=== PATIENT | female | born 1985 | race American Indian/Alaskan Native ===

== ENCOUNTER 2018-02-20 03:26 | Emergency (ER) | payer MEDICAID ==
[2018-02-20 04:56] LABS: Basophils # (Auto) 0.1 K/mm3 (0.0-0.1); Basophils % (Auto) 1.1 % (0.0-1.8); Eosinophils # (Auto) 0.1 K/mm3 (0.0-0.4); Eosinophils % (Auto) 2.4 % (0.0-4.3); Hematocrit 40.3 % (30.3-42.9); Hemoglobin 13.3 gm/dl (10.1-14.3); Lymphocytes # (Auto) 1.5 K/mm3 (1.2-5.4); Lymphocytes % (Auto) 30.2 % (13.4-35.0); Mean Corpuscular HGB Conc 33 % (30-34); Mean Corpuscular Hemoglobin 27 pg (28-32); Mean Corpuscular Volume 81 fl (79-97); Monocytes # (Auto) 0.4 K/mm3 (0.0-0.8); Monocytes % (Auto) 8.3 % (0.0-7.3); Platelet Count 239 K/mm3 (140-440); Red Blood Count 4.99 M/mm3 (3.65-5.03); Red Cell Distribution Width 13.7 % (13.2-15.2)
[2018-02-20] MEDS ORDERED: NORVASC PO ONE (06:33)
--- NOTE | 2018-02-20 06:38 | Emergency Department Report ---
HPI - General Chief Complaint: High BP Time Seen by Provider: 02/20/18 06:12 - HPI HPI: 33-year-old -[place] female presents to the emergency department with complaint of elevated blood pressure and a headache. The patient has a history of some intermittent hypertension but has not been on any medications for it over the past few years. She was being seen by her [employer]MENT[employer]AR [employer]OP[employer] at [facility] and was found to have a blood pressure of about 150/110 and was told that she needs to get back on blood pressure medications. She was referred to a primary care physician at [place] and was told by that office to come in yesterday for an evaluation. However just as they got there the physician apparently had left and they were encouraged to come to the emergency department. The headache is frontal. It was 8 out of 10 in intensity when she arrived but is now down to 2 out of 10 without any intervention. She is a former smoker but denies any illicit drug use. She admits to sometimes having a lot of salt in her diet. She denies any vision change, slurred speech, chest pain or shortness of breath , or any neurological deficits. ED Past Medical Hx - Past Medical History Previous Medical History?: Yes Hx Hypertension: Yes (09/2012) Hx Heart Attack/AMI: No Hx Congestive Heart Failure: No Hx Diabetes: Yes (gestational) Hx Deep Vein Thrombosis: No Hx Renal Disease: No Hx Sickle Cell Disease: No Hx Seizures: No Hx Asthma: No Hx COPD: No Hx HIV: No - Surgical History Past Surgical History?: No - Social History Smoking Status: Never Smoker Substance Use Type: None - Medications Home Medications: Home Medications Medication Instructions Recorded Confirmed Last Taken Type Multivit-Minerals/Folic Acid [[facility] 1 tab PO DAILY 05/29/15 06/03/15 06/03/15 09: 00 History Women's Daily Gummies] Amlodipine Besylate [Norvasc] 5 mg PO QDAY #30 tablet 02/20/18 Unknown Rx ED Review of Systems ROS: Stated complaint: HTN Other details as noted in HPI Comment: All other systems reviewed and negative Constitutional: denies: chills, fever Eyes: denies: eye pain, eye discharge, vision change ENT: denies: ear pain, throat pain Respiratory: denies: cough, shortness of breath, wheezing Cardiovascular: denies: chest pain, palpitations Gastrointestinal: denies: abdominal pain, nausea, diarrhea Genitourinary: denies: urgency, dysuria, discharge Musculoskeletal: denies: back pain, joint swelling, arthralgia Skin: denies: rash, lesions Neurological: headache. denies: numbness Physical Exam - Physical Exam Vital Signs: Vital Signs 02/20/18 03:30 Temperature 98.5 F Pulse Rate 87 Respiratory 18 Rate Blood Pressure 152/107 O2 Sat by Pulse 100 Oximetry Physical Exam: GENERAL: The patient is well-developed well-nourished. HENT: Normocephalic. Atraumatic. Patient has moist mucous membranes. EYES: Extraocular motions are intact. Pupils equal reactive to light bilaterally. NECK: Supple. Trachea is midline. CHEST/LUNGS: Clear to auscultation. There is no respiratory distress noted. HEART/CARDIOVASCULAR: Regular. There is no tachycardia. There is no murmur. ABDOMEN: Abdomen is soft, nontender. Patient has normal bowel sounds. There is no abdominal distention. SKIN: Skin is warm and dry. NEURO: The patient is awake, alert, and oriented. The patient is cooperative. The patient has no focal neurologic deficits. The patient has normal speech. Cranial nerves II through XII grossly intact. MUSCULOSKELETAL: There is no tenderness or deformity. There is no limitation range of motion. There is no evidence of acute injury. ED Course Vital Signs 02/20/18 03:30 Temperature 98.5 F Pulse Rate 87 Respiratory 18 Rate Blood Pressure 152/107 O2 Sat by Pulse 100 Oximetry ED Medical Decision Making - Lab Data Result diagrams: 02/20/18 04:04 02/20/18 04:04 - EKG Data -: EKG Interpreted by Me EKG shows normal: sinus rhythm, axis, intervals, QRS complexes, ST-T waves Rate: normal - EKG Data When compared to previous EKG there are: previous EKG unavailable Interpretation: normal EKG - Medical Decision Making Patient presents with some hypertension and a mild headache. There are no focal , motor or sensory deficits in her cranial nerves are intact. Because of this, and since the headache is greatly improved, and since the blood pressure is not accelerated or a hypertensive urgency, did not feel that the patient required a CT of the head for evaluation of the headache. She is in agreement with this. She was given a dose of Norvasc at a medium dose upon reevaluation her blood pressures come down to a more reasonable level. We discussed dietary and lifestyle changes to make to assist with her blood pressure. She will be started on Norvasc 5 mg and has been instructed to keep a blood pressure log. She will follow up with her primary care physician and will return to the ER with any worsening of her symptoms or any acute distress. - Differential Diagnosis tension headache, migraine, cluster headache Critical Care Time: No Critical care attestation.: If time is entered above; I have spent that time in minutes in the direct care of this critically ill patient, excluding procedure time. ED Disposition Clinical Impression: Hypertension Qualifiers: Hypertension type: essential hypertension Qualified Code(s): I10 - Essential ( primary) hypertension Headache Qualifiers: Headache type: unspecified Headache chronicity pattern: unspecified pattern Intractability: not intractable Qualified Code(s): R51 - Headache Disposition: DC-01 TO HOME OR SELFCARE Is pt being admited?: No Condition: Stable Instructions: Acute Headache (ED), Hypertension (ED) Additional Instructions: Please follow up with a primary care physician in the next few days. Return to the emergency Department with any worsening of your symptoms or any acute distress. I have started you on a blood pressure medication called Norvasc/amlodipine that is to be taken once daily, usually in the morning. Keep a blood pressure log. Try and stay away from foods that are high in salt and caffeinated products. Prescriptions: Amlodipine Besylate [Norvasc] 5 mg PO QDAY #30 tablet Referrals: PRIMARY MD EUFEMIA [Primary Care Provider] - 2-3 Days Time of Disposition: 07:50
[2018-02-20 07:36] LABS: BUN/Creatinine Ratio 13; Blood Urea Nitrogen 10 mg/dL (7-17); Calcium 9.9 mg/dL (8.4-10.2); Hemolysis Index 3
[2018-02-20 08:27] VITALS: BP 139/86
== END 2018-02-20 08:27 | disposition home or self-care (01) ==
LOC: ED 03:26
DX: I10 Essential (primary) hypertension (principal); R51 Headache
CPT/HCPCS: 36415; 80048; 85025; 93005; 93010; 99283

== ENCOUNTER 2020-07-19 19:20 | Emergency (ER) | payer MEDICAID ==
--- NOTE | 2020-07-19 20:47 | Event Note ---
ED Screening Note ED Screening Note: states she has had elevated BP for two days states she is supposed to be on amlodipine 10 mg, she is non compliant +palpitations yesterday +headache states she feels nervous no CP no SOB no cough no fever no n/v/d no vision changes no numbness no unilateral weakness PMHx HTN no allergies to meds implanted control has not had ETOH in a month no drug use non smoker +occasional tea use +soda no energy drinks This initial assessment/diagnostic orders/clinical plan/treatment(s) is/are subject to change based on patients health status, clinical progression and re- assessment by fellow clinical providers in the ED. Further treatment and workup at subsequent clinical providers discretion. Patient/guardian urged not to elope from the ED as their condition may be serious if not clinically assessed and managed. Initial orders include: labs, EKG, UA, UDS
[2020-07-19] MEDS ORDERED: SODIUM CHLORIDE 0.9% 1000 ML 1,000 ML ONE (21:00)
--- NOTE | 2020-07-19 21:05 | Emergency Department Report ---
ED Palpitations HPI - General Chief Complaint: Arrhythmia/Palpitations Stated Complaint: RAPID HEARTBEAT/HIGH BP Time Seen by Provider: 07/19/20 20:50 Source: patient Mode of arrival: Ambulatory Limitations: No Limitations - History of Present Illness Initial Comments: Patient is a 35-year-old female that presents emergency room with complaints of palpitations and elevated blood pressure and headache. Patient states she is also feeling anxious. Patient states that her symptoms started yesterday. Patient states she supposed to be taking amlodipine but she has not taken it for many months. Patient states she was try to take the natural route. Patient states her headache is a dull pressure and is global. Patient denies blurry vision. Patient states that her headache is better with rest and worse with exertion. Patient denies neck stiffness. Patient denies numbness. Patient denies weakness. Patient denies chest pain or shortness of breath. Patient denies cough. Patient denies fever and chills. Patient states she has an Nexplanon in her right upper extremity. Patient states her anxiety is better with rest and worse with emotional stress and thinking about her blood pressure and heart rate. Patient states her palpitations are better with rest and worse with exertion. Patient denies recent travel. Patient denies recent international travel. Patient denies exposure to the novel coronavirus. Patient denies sick contacts. Patient denies fever and chills. Patient denies cough. Patient denies diarrhea. Patient denies coming in contact with anybody with symptoms of the novel coronavirus. Complaint: rapid heart beat, "heart racing" -: Sudden Context: occured during rest Associated Symptoms: anxiety. denies: chest pain, shortness of breath, syncope, near-syncope, nausea/vomiting, diaphoresis, cough, parasthesias, feeling of impending doom, muscle cramps - Related Data Home Medications Medication Instructions Recorded Confirmed Last Taken Multivit-Minerals/Folic Acid [[facility] 1 tab PO DAILY 05/29/15 06/03/15 06/03/15 09:00 Women's Daily Gummies] Previous Rx's Medication Instructions Recorded Last Taken Type Amlodipine Besylate [Norvasc] 5 mg PO QDAY #30 tablet 02/20/18 Unknown Rx Metoprolol Xl [Metoprolol 25 mg PO QDAY 30 Days #30 tablet 07/20/20 Unknown Rx SUCCINATE ER TAB] Potassium Chloride [K-Dur] 20 meq PO DAILY 30 Days #30 tab 07/20/20 Unknown Rx Allergies Allergy/AdvReac Type Severity Reaction Status Date / Time No Known Allergies Allergy Verified 05/29/15 19:19 ED Review of Systems ROS: Stated complaint: RAPID HEARTBEAT/HIGH BP Other details as noted in HPI Constitutional: denies: chills, fever Eyes: denies: eye pain, eye discharge, vision change ENT: denies: ear pain, throat pain Respiratory: denies: cough, shortness of breath, wheezing Cardiovascular: palpitations. denies: chest pain Endocrine: no symptoms reported Gastrointestinal: denies: abdominal pain, nausea, diarrhea Genitourinary: denies: urgency, dysuria, discharge Musculoskeletal: denies: back pain, joint swelling, arthralgia Skin: denies: rash, lesions Neurological: headache. denies: weakness, paresthesias Psychiatric: anxiety. denies: depression Hematological/Lymphatic: denies: easy bleeding, easy bruising ED Past Medical Hx - Past Medical History Previous Medical History?: Yes Hx Hypertension: Yes (09/2012) Hx Heart Attack/AMI: No Hx Congestive Heart Failure: No Hx Diabetes: Yes (gestational) Hx Deep Vein Thrombosis: No Hx Renal Disease: No Hx Sickle Cell Disease: No Hx Seizures: No Hx Asthma: No Hx COPD: No Hx HIV: No - Surgical History Past Surgical History?: No - Family History Family history: no significant - Social History Smoking Status: Never Smoker Substance Use Type: None - Medications Home Medications: Home Medications Medication Instructions Recorded Confirmed Last Taken Type Multivit-Minerals/Folic Acid [[facility] 1 tab PO DAILY 05/29/15 06/03/15 06/03/15 09:00 History Women's Daily Gummies] Amlodipine Besylate [Norvasc] 5 mg PO QDAY #30 tablet 02/20/18 Unknown Rx Metoprolol Xl [Metoprolol 25 mg PO QDAY 30 Days #30 tablet 07/20/20 Unknown Rx SUCCINATE ER TAB] Potassium Chloride [K-Dur] 20 meq PO DAILY 30 Days #30 tab 07/20/20 Unknown Rx ED Physical Exam - General Limitations: No Limitations General appearance: alert, in no apparent distress - Head Head exam: Present: atraumatic, normocephalic - Eye Eye exam: Present: normal appearance, PERRL Pupils: Present: normal accommodation - ENT ENT exam: Present: mucous membranes moist - Neck Neck exam: Present: normal inspection - Respiratory Respiratory exam: Present: normal lung sounds bilaterally. Absent: respiratory distress, wheezes, rales - Cardiovascular Cardiovascular Exam: Present: regular rate, normal rhythm. Absent: systolic murmur, diastolic murmur, rubs, gallop - GI/Abdominal GI/Abdominal exam: Present: soft, normal bowel sounds - Extremities Exam Extremities exam: Present: normal inspection - Back Exam Back exam: Present: normal inspection - Neurological Exam Neurological exam: Present: alert, oriented X3 - Psychiatric Psychiatric exam: Present: anxious - Skin Skin exam: Present: warm, dry, intact, normal color. Absent: rash ED Course Vital Signs 07/19/20 07/19/20 07/19/20 20:22 21:05 21:08 Temperature 98.6 F Pulse Rate 144 H 148 H 148 H Respiratory 18 18 Rate Blood Pressure 178/104 150/101 Blood Pressure 158/101 [Right] O2 Sat by Pulse 99 98 Oximetry 07/19/20 07/19/20 07/19/20 21:20 21:21 21:45 Temperature Pulse Rate 103 H 101 H Respiratory 22 22 19 Rate Blood Pressure Blood Pressure 145/113 150/97 [Right] O2 Sat by Pulse 97 100 Oximetry 07/20/20 00:53 Temperature Pulse Rate 96 H Respiratory 17 Rate Blood Pressure Blood Pressure [Right] O2 Sat by Pulse 100 Oximetry - Reevaluation(s) Reevaluation #1: Patient evaluation done. Patient found to have a heart rate of 148. Patient's EKG is a sinus tach. Patient's blood pressure is 158/1 1. Patient was given 5 mg of Lopressor. 07/19/20 21:00 Reevaluation #2: Patient states he is feeling much better. Patient's blood pressure is much better. Patient's heart rate has improved. Patient states her anxiety has resolved. Patient states she still having headache. 07/19/20 22:18 Reevaluation #3: Patient states her headache is resolved after the Tylenol. Patient's heart rate is much better. Patient's blood pressure has improved. I discussed all results and clinical findings with patient. I discussed plan of care with patient. Patient agrees with plan of care. Patient is stable for discharge. Patient will be discharged home. Patient given discharge instructions. Patient voiced understanding of discharge instructions. 12/09/20 23:28 Reevaluation #4: Patient's heart rate still stable. Patient heart rate at this time is 89-93 07/19/20 23:59 ED Medical Decision Making - Lab Data Result diagrams: 07/19/20 20:54 07/19/20 20:54 - EKG Data -: EKG Interpreted by Sc EKG shows normal: sinus rhythm, axis, intervals, QRS complexes, ST-T waves Rate: tachycardia - Radiology Data Radiology results: report reviewed CT head/brain wo con INDICATION / CLINICAL INFORMATION: 35 years Female; Patient complains of a headache, Tachycardia and elevated BP.. TECHNIQUE: Routine CT head without contrast. All CT scans at this location are performed using CT dose reduction for ALARA by means of automated exposure control. COMPARISON: None. FINDINGS: BRAIN / INTRACRANIAL CONTENTS: No acute hemorrhage, mass effect, midline shift, hydrocephalus, or acute, large territorial infarct. No signs of significant atrophy or chronic infarct. No significant white matter abnormality seen. CRANIOCERVICAL JUNCTION: No significant abnormality. ORBITS: No significant abnormality of visualized orbits. SINUSES / MASTOIDS: No significant abnormality in the visualized paranasal sinuses or mastoid air cells. ADDITIONAL FINDINGS: None. IMPRESSION: 1. No focal mass, hemorrhage, hydrocephalus, or acute, large territorial infarct. - Medical Decision Making Patient is a 35-year-old female that presents emergency room with complaints of palpitations, anxiety, elevated blood pressure, headache. Patient was given metoprolol after initial evaluation. Patient heart rate and blood pressure did improve dramatically. Patient was also given a liter of fluids. Patient's anxiety improved. Patient was then given Tylenol for headache and her headache resolved. Due to the fact that the patient's headache did not resolve with the lowering of her blood pressure, a head CT was done. Patient's head CT was negative for acute findings. Patient's labs were essentially unremarkable except for hypokalemia... Patient given oral potassium. Patient stable for discharge. Patient discharged home. Patient given prescription for metoprolol and K-Dur. Patient instructed to have a chemistry done within 2 to 3 days with primary care. Patient instructed to take all medications. - Differential Diagnosis Anxiety, palpitations, elevated blood pressure, noncompliance, electrolyte Critical Care Time: Yes Critical care time in (mins) excluding proc time.: 35 Critical care attestation.: If time is entered above; I have spent that time in minutes in the direct care of this critically ill patient, excluding procedure time. Critical Care Time: 35 minutes ED Disposition Clinical Impression: Heart palpitations, Hypokalemia, Hypertensive urgency, Tachycardia Headache Qualifiers: Headache type: unspecified Headache chronicity pattern: acute headache Intractability: not intractable Qualified Code(s): R51.9 - Headache, unspecified Hypertension Qualifiers: Hypertension type: essential hypertension Qualified Code(s): I10 - Essential (primary) hypertension Disposition: TO HOME OR SELFCARE Is pt being admited?: No Does the pt Need Aspirin: No Condition: Stable Instructions: Hypokalemia, How to Take Your Blood Pressure, DASH Eating Plan, Hypertension, Adult, [id number], Hypertension (ED) Additional Instructions: Patient to follow-up with primary care in 2 to 3 days. Patient to follow-up with status controller in 2 to 3 days. Patient will need a potassium rechecked within a week with her primary care. Patient to monitor blood pressure and heart rate at home. Patient to keep a blood pressure log. Patient to take blood pressure log to all follow-up appointments. Patient to eat a low-salt, heart healthy diet. Patient to rest. Patient to increase water. Patient to avoid strenuous exercise or heavy lifting until cleared by status controller. Patient to take Tylenol as needed for pain. Patient to take meds as directed. Patient to return to the ER if condition worsens, changes or new symptoms arise. Prescriptions: Potassium Chloride [K-Dur] 20 meq PO DAILY 30 Days #30 tab Metoprolol Xl [Metoprolol SUCCINATE ER TAB] 25 mg PO QDAY 30 Days #30 tablet Referrals: PRIMARY MD EUFEMIA [Primary Care Provider] - 2-3 Days MATTHEW SHORT MD [Staff Physician] - 2-3 Days Time of Disposition: 00:11
[2020-07-19] MEDS ORDERED: METOPROLOL TARTRATE 5 MG/5 ML INJ IV ONE ×2 (21:07→21:08)
[2020-07-19] MEDS ORDERED: SODIUM CHLORIDE 0.9% 1000 ML 1,000 ML IV ONE (21:08)
[2020-07-19 22:02] LABS: Amphetamine Screen,Urine PRESUMPTIVE NEGATIVE; Benzodiazepines Screen,Urine PRESUMPTIVE NEGATIVE; Cannabinoid Screen,Urine PRESUMPTIVE NEGATIVE; Cocaine Screen,Urine PRESUMPTIVE NEGATIVE; Methadone Screen,Urine PRESUMPTIVE NEGATIVE; Opiate Screen,Urine PRESUMPTIVE NEGATIVE
[2020-07-19 22:05] LABS: Bacteria,Urine 2+ /HPF (Negative); Bilirubin,Urine NEG (Negative); Blood,Urine SM (Negative); Color,Urine Straw (Yellow); Protein,Urine <15 mg/dL mg/dL (Negative); Urobilinogen,Urine < 2.0 mg/dL (<2.0)
[2020-07-19 22:33] LABS: Basophils # (Auto) 0.1 K/mm3 (0.0-0.1); Basophils % (Auto) 0.8 % (0.0-1.8); Eosinophils % (Auto) 0.4 % (0.0-4.3); Hematocrit 45.1 % (30.3-42.9); Hemoglobin 14.7 gm/dl (10.1-14.3); Lymphocytes % (Auto) 26.5 % (13.4-35.0); Mean Corpuscular HGB Conc 33 % (30-34); Mean Corpuscular Volume 80 fl (79-97); Monocytes # (Auto) 0.4 K/mm3 (0.0-0.8); Monocytes % (Auto) 5.8 % (0.0-7.3); Platelet Count 308 K/mm3 (140-440); Red Blood Count 5.65 M/mm3 (3.65-5.03); Red Cell Distribution Width 14.3 % (13.2-15.2)
[2020-07-19 22:45] LABS: Alanine Aminotransferase 14 units/L (7-56); Albumin 4.9 g/dL (3.9-5); Blood Urea Nitrogen 5 mg/dL (7-17); Calcium 10.7 mg/dL (8.4-10.2); Hemolysis Index 0
[2020-07-19] MEDS ORDERED: ACETAMINOPHEN 500 MG TAB ONE (22:46)
[2020-07-19] MEDS ORDERED: ACETAMINOPHEN 500 MG TAB PO ONE (22:48)
[2020-07-19 22:49] LABS: BUN/Creatinine Ratio 8
[2020-07-19 23:02] VITALS: BP 150/97
--- NOTE | 2020-07-19 23:19 | Cat Scan Report ---
CT head/brain wo con INDICATION / CLINICAL INFORMATION: 35 years Female; Patient complains of a headache, Tachycardia and elevated BP.. TECHNIQUE: Routine CT head without contrast. All CT scans at this location are performed using CT dos e reduction for ALARA by means of automated exposure control. COMPARISON: None. FINDINGS: BRAIN / INTRACRANIAL CONTENTS: No acute hemorrhage, mass effect, midline shift, hydrocephalus, or acu te, large territorial infarct. No signs of significant atrophy or chronic infarct. No significant whi te matter abnormality seen. CRANIOCERVICAL JUNCTION: No significant abnormality. ORBITS: No significant abnormality of visualized orbits. SINUSES / MASTOIDS: No significant abnormality in the visualized paranasal sinuses or mastoid air ni ls. ADDITIONAL FINDINGS: None. IMPRESSION: 1. No focal mass, hemorrhage, hydrocephalus, or acute, large territorial infarct. Signer Name: Karl Cabrera MD, III Signed: 07/19/2020 11:14 PM Workstation Name: [id number]
[2020-07-20] MEDS ORDERED: POTASSIUM CHLORIDE ER 20 MEQ TAB PO ONE (00:06)
== END 2020-07-20 00:53 | disposition home or self-care (01) ==
LOC: ED 19:20
DX: R00.2 Palpitations (principal); E87.6 Hypokalemia; I16.0 Hypertensive urgency; R00.0 Tachycardia, unspecified; I10 Essential (primary) hypertension; E11.9 Type 2 diabetes mellitus without complications; Z79.899 Other long term (current) drug therapy
CPT/HCPCS: 36415; 70450; 80053; 80307; 81001; 82550; 83735; 84443; 84484; 84703; 85025; 93005; 96361; 96374; 99284; J7030

== ENCOUNTER 2020-09-04 12:08 | Emergency (ER) | payer MEDICAID ==
--- NOTE | 2020-09-04 12:52 | Event Note ---
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 Further treatment and workup at subsequent clinical providers discretion. Patient/guardian urged not to elope from the ED as their condition may be serious if not clinically assessed and managed. Initial orders include: labs, EKG
[2020-09-04 14:11] LABS: Basophils % (Auto) 0.8 % (0.0-1.8); Eosinophils % (Auto) 0.3 % (0.0-4.3); Hematocrit 41.4 % (30.3-42.9); Hemoglobin 13.7 gm/dl (10.1-14.3); Lymphocytes # (Auto) 0.5 K/mm3 (1.2-5.4); Lymphocytes % (Auto) 14.3 % (13.4-35.0); Mean Corpuscular HGB Conc 33 % (30-34); Mean Corpuscular Volume 80 fl (79-97); Monocytes # (Auto) 0.6 K/mm3 (0.0-0.8); Monocytes % (Auto) 15.6 % (0.0-7.3); Platelet Count 235 K/mm3 (140-440); Red Blood Count 5.18 M/mm3 (3.65-5.03); Red Cell Distribution Width 14.5 % (13.2-15.2)
[2020-09-04 14:35] LABS: Alanine Aminotransferase 9 units/L (7-56); Albumin 4.6 g/dL (3.9-5); Blood Urea Nitrogen 6 mg/dL (7-17); Calcium 9.5 mg/dL (8.4-10.2); Hemolysis Index 4
[2020-09-04 14:45] LABS: BUN/Creatinine Ratio 10
[2020-09-04] MEDS ORDERED: METOCLOPRAMIDE 10 MG/2 ML INJ IV ONE (19:10)
[2020-09-04] MEDS ORDERED: diphenhydrAMINE 50 MG/ML VIAL IV ONE (19:10)
[2020-09-04] MEDS ORDERED: cefTRIAXone/NS 1 GM/50 ML 1 GM/50 ML BAG IV ONE (19:10)
--- NOTE | 2020-09-05 01:16 | Emergency Department Report ---
HPI - General Chief Complaint: Arrhythmia/Palpitations Time Seen by Provider: 09/04/20 12:49 - HPI HPI: Room 44 The patient is a 35-year-old female present with a chief complaint of palpitations. The patient states she has a history of tachycardia and has been placed on metoprolol. The patient states she was feeling sad after interaction with her significant other and at that time she began feeling her heart rate elevated. The patient states she last took a metoprolol at 08: 00 this morning. Patient states her only complaint is feeling a little tired. Patient denies chest pain shortness of breath fevers cough nausea vomiting. ED Past Medical Hx - Past Medical History Previous Medical History?: Yes Hx Hypertension: Yes (09/2012) Hx Diabetes: Yes (gestational) - Surgical History Past Surgical History?: No - Family History Family history: no significant - Social History Smoking Status: Former Smoker (None x4 years) Substance Use Type: None (Denies illicit drug use) - Medications Home Medications: Home Medications Medication Instructions Recorded Confirmed Last Taken Type Multivit-Minerals/Folic Acid [[facility] 1 tab PO DAILY 05/29/15 06/03/15 06/03/15 09:00 History Women's Daily Gummies] Amlodipine Besylate [Norvasc] 5 mg PO QDAY #30 tablet 02/20/18 Unknown Rx Metoprolol Xl [Metoprolol 25 mg PO QDAY 30 Days #30 tablet 07/20/20 Unknown Rx SUCCINATE ER TAB] Potassium Chloride [K-Dur] 20 meq PO DAILY 30 Days #30 tab 07/20/20 Unknown Rx ED Review of Systems ROS: Stated complaint: RAPID HEART RATE Other details as noted in HPI Constitutional: no symptoms reported Eyes: denies: eye pain ENT: denies: throat pain Respiratory: no symptoms reported. denies: shortness of breath Cardiovascular: palpitations. denies: chest pain Endocrine: no symptoms reported Gastrointestinal: denies: nausea, vomiting Musculoskeletal: denies: back pain Neurological: denies: headache Physical Exam - Physical Exam Vital Signs: Vital Signs 09/04/20 09/04/20 12:33 18:18 Pulse Rate 150 H 130 H Respiratory 18 16 Rate Blood Pressure 143/98 154/90 [Right] O2 Sat by Pulse 100 100 Oximetry Vital Signs 09/04/20 09/04/20 09/05/20 12:33 18:18 01:19 Pulse Rate 150 H 130 H 118 H Respiratory 18 16 20 Rate Blood Pressure Blood Pressure 143/98 154/90 152/91 [Right] O2 Sat by Pulse 100 100 99 Oximetry 09/05/20 09/05/20 09/05/20 01:45 01:46 02:00 Pulse Rate 110 H 105 H 86 Respiratory 18 17 Rate Blood Pressure 137/94 Blood Pressure 137/94 134/87 [Right] O2 Sat by Pulse 98 100 Oximetry Physical Exam: GENERAL: The patient is well-developed well-nourished female lying on stretcher not appearing to be in acute distress. [] HEENT: Normocephalic. Atraumatic. Extraocular motions are intact. Patient has moist mucous membranes. NECK: Supple. No meningitic signs are noted. There is no adenopathy noted. CHEST/LUNGS: Clear to auscultation. There is no respiratory distress noted. HEART/CARDIOVASCULAR: Regular. There is tachycardia. There is no gallop rub or murmur. ABDOMEN: Abdomen is soft, nontender. Patient has normal bowel sounds. There is no abdominal distention. SKIN: There is no rash. There is no edema. There is no diaphoresis. NEURO: The patient is awake, alert, and oriented. The patient is cooperative. The patient has no focal neurologic deficits. The patient has normal speech MUSCULOSKELETAL: There is no tenderness or deformity. There is no limitation range of motion. There is no evidence of acute injury. ED Course Vital Signs 09/04/20 09/04/20 12:33 18:18 Pulse Rate 150 H 130 H Respiratory 18 16 Rate Blood Pressure 143/98 154/90 [Right] O2 Sat by Pulse 100 100 Oximetry ED Medical Decision Making - Lab Data Result diagrams: 09/04/20 13:25 09/04/20 13:25 Laboratory Tests 09/04/20 09/04/20 09/04/20 13:25 13:25 13:25 WBC 3.7 L RBC 5.18 H Hgb 13.7 Hct 41.4 MCV 80 MCH 27 L MCHC 33 RDW 14.5 Plt Count 235 Lymph % (Auto) 14.3 [place] % (Auto) 15.6 H Eos % (Auto) 0.3 Baso % (Auto) 0.8 Lymph # (Auto) 0.5 L [place] # (Auto) 0.6 Eos # (Auto) 0.0 Baso # (Auto) 0.0 Seg Neutrophils % 69.0 Seg Neutrophils # 2.6 Sodium 137 Potassium 3.7 Chloride 101.7 Carbon Dioxide 20 L Anion Gap 19 BUN 6 L Creatinine 0.6 Estimated GFR > 60 BUN/Creatinine Ratio 10 Glucose 79 Calcium 9.5 Magnesium 2.00 Total Bilirubin 1.10 AST 15 ALT 9 Alkaline Phosphatase 67 Total Creatine Kinase 84 Troponin T NT-Pro-B Natriuret Pep Total Protein 8.5 H Albumin 4.6 Albumin/Globulin Ratio 1.2 HCG, Qual Negative 09/04/20 13:25 WBC RBC Hgb Hct MCV MCH MCHC RDW Plt Count Lymph % (Auto) [place] % (Auto) Eos % (Auto) Baso % (Auto) Lymph # (Auto) [place] # (Auto) Eos # (Auto) Baso # (Auto) Seg Neutrophils % Seg Neutrophils # Sodium Potassium Chloride Carbon Dioxide Anion Gap BUN Creatinine Estimated GFR BUN/Creatinine Ratio Glucose Calcium Magnesium Total Bilirubin AST ALT Alkaline Phosphatase Total Creatine Kinase Troponin T < 0.010 NT-Pro-B Natriuret Pep 33.83 Total Protein Albumin Albumin/Globulin Ratio HCG, Qual - EKG Data -: EKG Interpreted by Ma EKG shows normal: sinus rhythm Rate: tachycardia (124 bpm) - EKG Data When compared to previous EKG there are: previous EKG unavailable Interpretation: nonspecific ST-T wave cassy (T wave inversions in leads III and aVF) - Differential Diagnosis Tachycardia Critical care attestation.: If time is entered above; I have spent that time in minutes in the direct care of this critically ill patient, excluding procedure time. ED Disposition Clinical Impression: Tachycardia Disposition: TO HOME OR SELFCARE Is pt being admited?: No Does the pt Need Aspirin: No Condition: Stable Instructions: Sinus Tachycardia Additional Instructions: Return to the emergency department should you develop worsening symptoms, inability to tolerate food or liquids, high fever or any other concerns Referrals: PRIMARY CAREMD [Primary Care Provider] - 3-5 Days DARREN GUILLEN MD [Staff Physician] - 3-5 Days Time of Disposition: 02:10
[2020-09-05] MEDS ORDERED: METOPROLOL TARTRATE 5 MG/5 ML INJ IV ONE ×2 (01:18→02:03)
[2020-09-05 02:47] VITALS: BP 140/86
== END 2020-09-05 02:43 | disposition home or self-care (01) ==
LOC: ED 12:08
DX: R00.0 Tachycardia, unspecified (principal); I10 Essential (primary) hypertension; E11.9 Type 2 diabetes mellitus without complications; Z79.899 Other long term (current) drug therapy; Z87.891 Personal history of nicotine dependence
CPT/HCPCS: 36415; 80053; 82550; 83735; 83880; 84484; 84703; 85025; 93005; 96374